=== PATIENT | female | born 1945 | race Hispanic/Latino ===

== ENCOUNTER 2022-08-09 15:32 | Inpatient (IN) | payer OTHER ==
[~2022-08-09] VITALS: Ht 152.4 cm; Wt 69.6 kg
[~2022-08-09 15:32] MED LIST: ALEN70TA80 PO; BENA40TA92 PO; GABA-529 PO; GLIM4TAB36 PO; METF-446 PO; PROP20TA7 PO; RIFA550T PO; SPIR100T5 PO; TROS20TA4 PO
[2022-08-09 16:23] LABS: POTASSIUM 4.3 mmol/L (3.5-5.1)
[2022-08-09 16:27] LABS: ALBUMIN 2.6 g/dL (3.5-5.0); TOTAL PROTEIN, SERUM 6.3 g/dL (6.0-8.3)
[2022-08-09 16:46] LABS: APPEARANCE,URINE CLOUDY (CLEAR); BILIRUBIN,URINE NEGATIVE (NEGATIVE); COLOR,URINE YELLOW (YELLOW); GLUCOSE, URINE (UA) NEGATIVE (NEGATIVE); KETONES,URINE NEGATIVE (NEGATIVE); LEUKOCYTE ESTERASE ,URINE 250 Leu/uL (NEGATIVE); NITRATE,URINE NEGATIVE (NEGATIVE); PH,URINE 5.5 (5.0-8.0); PROTEIN,URINE NEGATIVE (NEGATIVE); UROBILINOGEN,URINE 6 mg/dL (0.2-1.0)
[2022-08-09 16:49] LABS: BACTERIA,URINE FEW /HPF (None Seen); MUCUS,URINE RARE LPF (None Seen); OTHER CASTS, URINE 1 /LPF (None Seen); SQUAMOUS EPITHELIAL CELL,UR MOD /HPF (0-2); WBC,URINE 51-100 /HPF (0-1)
[2022-08-09 16:54] LABS: BASOPHILS % (AUTO) 0.8 % (0.0-5.0); EOSINOPHILS % (AUTO) 13.2 % (0.0-8.0); HEMATOCRIT 26.5 % (36-48); LYMPHOCYTES % (AUTO) 27.6 % (21.0-51.0); MEAN CORPUSCULAR HEMOGLOBIN 31.8 pg (27.0-33.0); MEAN CORPUSCULAR HGB CONC 32.8 g/dL (32.0-36.0); MEAN CORPUSCULAR VOLUME 96.7 fL (79-99); MONOCYTES % (AUTO) 8.6 % (3.0-13.0); NEUTROPHILS % (AUTO) 49.5 % (40.0-77.0); PLATELET COUNT (AUTO) 72 K/uL (130-400); RED BLOOD CELL COUNT(AUTO) 2.74 MIL/uL (4.00-5.50); RED CELL DISTRIBUTION WIDTH 15.8 % (11.0-15.5); WHITE BLOOD COUNT (AUTO) 3.7 K/uL (4.8-10.8)
[2022-08-09 17:06] LABS: INR 1.08 (0.85-1.15); PROTHROMBIN TIME 11.7 SEC (9.6-11.6)
[2022-08-09 17:08] LABS: PARTIAL THROMBOPLASTIN TIME 26.7 SEC (26.3-35.5)
[2022-08-09] MEDS ORDERED: PANTOPRAZOLE 40 MG/VIAL IVP ONE (17:30)
[2022-08-09] MEDS: PANTOPRAZOLE 40MG INJ 80 MG in 0.9%NACL 100ML 100 ML IVP SCH (17:46)
[2022-08-09] MEDS ORDERED: ACETAMINOPHEN 325 MG TAB PO PRN ×2 (18:00)
[2022-08-09] MEDS ORDERED: ONDANSETRON 4MG INJ IV PRN (18:00)
[2022-08-09 18:16] LABS: RETICULOCYTE % (AUTO) 4.47 % (0.42-2.23)
[2022-08-09] MEDS ORDERED: OCTREOTIDE ACETATE 1,250 MCG in 0.9% NACL 250ML 250 ML IV SCH (18:30)
[2022-08-09] MEDS ORDERED: PSYL174P2 PO (18:39)
[2022-08-09] MEDS ORDERED: PRAV40TA3 PO (18:39)
[2022-08-09] MEDS ORDERED: ONDA4AMP PO (18:39)
[2022-08-09] MEDS ORDERED: ALEN70TA80 PO (18:39)
[2022-08-09] MEDS ORDERED: FURO40TA5 PO (18:39)
[2022-08-09] MEDS ORDERED: URSO250T12 PO (18:39)
[2022-08-09] MEDS ORDERED: MELO-106 PO (18:39)
[2022-08-09] MEDS ORDERED: METF500S9 PO (18:39)
[2022-08-09] MEDS ORDERED: ASCO-477 PO (18:39)
[2022-08-09 18:40] LABS: % IRON SATURATION 81.8 % (22-44)
[2022-08-09 18:42] LABS: BILIRUBIN,DIRECT 0.7 mg/dL (0.0-0.3); THYROID STIMULATING HORMONE 2.95 uIU/mL (0.36-3.74)
[2022-08-09] MEDS: CEFTRIAXONE 1G VIAL IV SCH (19:10)
[2022-08-09 20:49] LABS: HEMATOCRIT 26.4 % (36-48)
[2022-08-09] MEDS: METOCLOPRAMIDE 10 MG/2 ML VIAL IVP SCH (21:00)
[2022-08-09] MEDS: LACTULOSE 20 GM/30 ML UDCUP PO SCH (21:00)
[2022-08-10 00:03] VITALS: BP 135/59
[2022-08-10] MEDS ORDERED: 0.9%NACL 100ML 100 ML ONE (02:37)
[2022-08-10] MEDS ORDERED: PANTOPRAZOLE 40 MG/VIAL ONE (02:37)
[2022-08-10 03:03] VITALS: BP 137/62
[2022-08-10] MEDS: PANTOPRAZOLE 40MG INJ 80 MG in 0.9%NACL 100ML 100 ML IVP SCH ×3 (03:25→23:30)
[2022-08-10 07:00] VITALS: BP_SYST 132; BP_SYST 138; BP_DIAS 56; BP_DIAS 87
[2022-08-10] MEDS ORDERED: PROPOFOL 10 MG/ML 20ML VIAL IV ONE (07:41)
[2022-08-10] MEDS ORDERED: MIDAZOLAM HCL 1 MG/ML 2ML VIAL ONE (07:41)
[2022-08-10] MEDS ORDERED: FENTANYL CITRATE PF 50 MCG/1 ML 2ML VIAL ONE (07:42)
[2022-08-10 08:27] LABS: HEMATOCRIT 27.4 % (36-48)
[2022-08-10] MEDS: LACTULOSE 20 GM/30 ML UDCUP PO SCH ×3 (08:51→20:22)
[2022-08-10] MEDS: METOCLOPRAMIDE 10 MG/2 ML VIAL IVP SCH ×3 (08:51→20:21)
[2022-08-10] MEDS ORDERED: PANTOPRAZOLE 40MG INJ 80 MG in 0.9%NACL 100ML 100 ML IV SCH (09:00)
[2022-08-10 11:00] VITALS: BP 131/58
[2022-08-10] MEDS ORDERED: COMPOUND IV REFRIGERATED 1 EACH IVSOLN MISC PRN (12:00)
[2022-08-10 13:06] LABS: HEMATOCRIT 28.9 % (36-48)
[2022-08-10 16:00] VITALS: BP 130/51
[2022-08-10] MEDS ORDERED: PEG 3350/NA SULF,BICARB,CL/KCL 4000 ML SOLN PO ONE (16:30)
[2022-08-10] MEDS: CEFTRIAXONE 1G VIAL IV SCH (18:30)
[2022-08-10 19:03] VITALS: BP 148/74
[2022-08-10 20:50] LABS: HEMATOCRIT 27.1 % (36-48)
[2022-08-11] VITALS (14 sets, daily range): BP systolic 128–143; BP diastolic 50–60
[2022-08-11] MEDS: PANTOPRAZOLE 40MG INJ 80 MG in 0.9%NACL 100ML 100 ML IVP SCH (00:59)
[2022-08-11] MEDS: LACTULOSE 20 GM/30 ML UDCUP PO SCH ×3 (08:14→19:46)
[2022-08-11] MEDS: METOCLOPRAMIDE 10 MG/2 ML VIAL IVP SCH ×3 (08:14→19:46)
[2022-08-11] MEDS ORDERED: FENTANYL CITRATE PF 50 MCG/1 ML 2ML VIAL ONE (12:09)
[2022-08-11] MEDS ORDERED: PROPOFOL 10 MG/ML 20ML VIAL IV ONE (12:09)
[2022-08-11] MEDS ORDERED: LIDOCAINE HCL 1% 20 ML VIAL ONE (12:10)
[2022-08-11] MEDS ORDERED: EPHEDRINE SULFATE 50 MG/ML AMPULE ONE (12:37)
[2022-08-11] MEDS: CEFTRIAXONE 1G VIAL IV SCH (17:13)
[2022-08-11] MEDS ORDERED: PANTOPRAZOLE 40 MG/VIAL ONE (19:22)
[2022-08-11] MEDS: PANTOPRAZOLE 40 MG/VIAL IVP SCH (19:45)
[2022-08-12] VITALS: BP 144/85
[2022-08-12 04:00] VITALS: BP 113/40
[2022-08-12 05:19] LABS: HEMATOCRIT 22.8 % (36-48); MEAN CORPUSCULAR HEMOGLOBIN 32.9 pg (27.0-33.0); MEAN CORPUSCULAR HGB CONC 34.2 g/dL (32.0-36.0); MEAN CORPUSCULAR VOLUME 96.2 fL (79-99); RED BLOOD CELL COUNT(AUTO) 2.37 MIL/uL (4.00-5.50); RED CELL DISTRIBUTION WIDTH 15.5 % (11.0-15.5); WHITE BLOOD COUNT (AUTO) 3.3 K/uL (4.8-10.8)
[2022-08-12 05:29] LABS: CREATININE 0.9 mg/dL (0.5-1.5); POTASSIUM 3.5 mmol/L (3.5-5.1)
[2022-08-12 08:00] VITALS: BP 133/44
[2022-08-12] MEDS: PANTOPRAZOLE 40 MG/VIAL IVP SCH ×2 (10:00→20:50)
[2022-08-12] MEDS: LACTULOSE 20 GM/30 ML UDCUP PO SCH ×3 (10:00→20:42)
[2022-08-12] MEDS: METOCLOPRAMIDE 10 MG/2 ML VIAL IVP SCH ×3 (10:00→20:50)
[2022-08-12 12:00] VITALS: BP 130/50
[2022-08-12] MEDS: FUROSEMIDE 20 MG TABLET PO SCH (12:15)
[2022-08-12] MEDS ORDERED: FUROSEMIDE 20 MG TABLET PO ONE (12:30)
[2022-08-12] MEDS ORDERED: EPOETIN ALFA-EPBX (NON-ESRD) 10,000 UNIT/ML VIAL SQ SCH (12:30)
[2022-08-12] MEDS ORDERED: SPIRONOLACTONE 25 MG TAB PO SCH (12:30)
[2022-08-12 12:39] LABS: % IRON SATURATION 10.4 % (22-44)
[2022-08-12 16:00] VITALS: BP 134/52
[2022-08-12] MEDS: SPIRONOLACTONE 25 MG TAB PO SCH (16:08)
[2022-08-12] MEDS: GABAPENTIN 100 MG CAPSULE PO SCH ×2 (16:08→20:50)
[2022-08-12] MEDS: CEFTRIAXONE 1G VIAL IV SCH (16:09)
[2022-08-12] MEDS: URSODIOL 250 MG PO SCH (20:42)
[2022-08-12 20:47] VITALS: BP 125/57
[2022-08-12] MEDS: PROPRANOLOL HCL 20 MG TAB PO SCH (20:50)
[2022-08-13 00:20] VITALS: BP 111/42
[2022-08-13 04:32] VITALS: BP 120/55
[2022-08-13 05:43] LABS: HEMATOCRIT 24.5 % (36-48); MEAN CORPUSCULAR HEMOGLOBIN 32.5 pg (27.0-33.0); MEAN CORPUSCULAR HGB CONC 33.9 g/dL (32.0-36.0); MEAN CORPUSCULAR VOLUME 96.1 fL (79-99); PLATELET COUNT (AUTO) 60 K/uL (130-400); RED BLOOD CELL COUNT(AUTO) 2.55 MIL/uL (4.00-5.50); RED CELL DISTRIBUTION WIDTH 15.7 % (11.0-15.5); WHITE BLOOD COUNT (AUTO) 3.8 K/uL (4.8-10.8)
[2022-08-13 06:24] LABS: ALBUMIN 2.3 g/dL (3.5-5.0); BILIRUBIN,DIRECT 0.4 mg/dL (0.0-0.3); MAGNESIUM 1.6 mg/dL (1.80-2.40); PHOSPHORUS 2.8 mg/dL (2.5-4.9); POTASSIUM 4.3 mmol/L (3.5-5.1); TOTAL PROTEIN, SERUM 5.6 g/dL (6.0-8.3)
[2022-08-13 07:11] VITALS: BP 134/58
[2022-08-13] MEDS ORDERED: MAGNESIUM 2GM PREMIX 50ML 50 ML IV SCH (08:00)
[2022-08-13] MEDS: URSODIOL 250 MG PO SCH (09:00)
[2022-08-13] MEDS: METOCLOPRAMIDE 10 MG/2 ML VIAL IVP SCH ×2 (09:00→14:41)
[2022-08-13] MEDS: PANTOPRAZOLE 40 MG/VIAL IVP SCH (10:42)
[2022-08-13] MEDS: FUROSEMIDE 20 MG TABLET PO SCH (10:43)
[2022-08-13] MEDS: LACTULOSE 20 GM/30 ML UDCUP PO SCH ×2 (10:43→14:41)
[2022-08-13] MEDS: PROPRANOLOL HCL 20 MG TAB PO SCH (10:43)
[2022-08-13] MEDS: SPIRONOLACTONE 25 MG TAB PO SCH (10:44)
[2022-08-13] MEDS: GABAPENTIN 100 MG CAPSULE PO SCH ×2 (10:52→14:40)
[2022-08-13 11:18] VITALS: BP 131/46
[2022-08-13 15:05] VITALS: BP 124/42
[2022-08-13] MEDS: CEFTRIAXONE 1G VIAL IV SCH (18:29)
[2022-08-13] MEDS ORDERED: PANT40TA PO (19:04)
[2022-08-13] MEDS ORDERED: SPIR25TA6 PO (19:04)
[2022-08-13] MEDS ORDERED: LACT PO (19:04)
[2022-08-13] MEDS ORDERED: FURO20TA6 PO (19:04)
== END 2022-08-13 19:58 | disposition home or self-care (01) | DRG 432 ==
LOC: EDH 15:32 → EDHIP 17:57 → 2DH 08-10 00:40 → 3AH 08-11 23:23
PROVIDERS: ADMIT Internal Medicine; ATTEND Internal Medicine
PROC: 06L38CZ Occlusion of Esophageal Vein with Extraluminal Device, Via Natural or Artificial Opening Endoscopic (ICD-10-PCS; principal; 2022-08-11)
PROC: 0DJD8ZZ Inspection of Lower Intestinal Tract, Via Natural or Artificial Opening Endoscopic (ICD-10-PCS; 2022-08-11)
DX: K74.60 Unspecified cirrhosis of liver (principal); I85.11 Secondary esophageal varices with bleeding; D61.818 Other pancytopenia; D62 Acute posthemorrhagic anemia; N39.0 Urinary tract infection, site not specified; E44.0 Moderate protein-calorie malnutrition; M48.56XA Collapsed vertebra, not elsewhere classified, lumbar region, initial encounter for fracture; K76.6 Portal hypertension; Z20.822 Contact with and (suspected) exposure to COVID-19; K57.90 Diverticulosis of intestine, part unspecified, without perforation or abscess without bleeding; K72.90 Hepatic failure, unspecified without coma; E11.9 Type 2 diabetes mellitus without complications; E78.00 Pure hypercholesterolemia, unspecified; I10 Essential (primary) hypertension; K21.9 Gastro-esophageal reflux disease without esophagitis; M16.0 Bilateral primary osteoarthritis of hip; Z96.652 Presence of left artificial knee joint; Z79.83 Long term (current) use of bisphosphonates; Z79.84 Long term (current) use of oral hypoglycemic drugs; Z79.899 Other long term (current) drug therapy; Z88.6 Allergy status to analgesic agent; Z90.710 Acquired absence of both cervix and uterus; Z68.30 Body mass index [BMI] 30.0-30.9, adult; K31.89 Other diseases of stomach and duodenum
CPT/HCPCS: 36415; 43244; 45378; 78278; 80048; 80053; 80076; 81001; 82140; 82248; 82270; 82607; 82728; 82746; 82948; 83036; 83540; 83550; 83735; 84100; 84443; 85014; 85018; 85025; 85027; 85045; 85610; 85730; 86850; 86900; 86901; 87077; 87088; 87186; 87635; 93005; A9512; C9113; G0378; J0696; J2250; J2354; J2405; J2704; J2765; J3010; J3475; J3490; J7050

== ENCOUNTER 2022-08-22 15:22 | Emergency (ER) | payer OTHER ==
[~2022-08-22] VITALS: Ht 157.5 cm; Wt 68.9 kg
[~2022-08-22 15:22] MED LIST changes: +ASCO-477 PO; -BENA40TA92 PO; +FURO20TA6 PO; +LACT PO; -METF-446 PO; +METF500S9 PO; +ONDA4AMP PO; +PANT40TA PO; +PRAV40TA3 PO; -SPIR100T5 PO; +SPIR25TA6 PO; +URSO250T12 PO
[2022-08-22 15:59] LABS: BASOPHILS % (AUTO) 0.6 % (0.0-5.0); EOSINOPHILS % (AUTO) 4.2 % (0.0-8.0); HEMATOCRIT 28.8 % (36-48); LYMPHOCYTES % (AUTO) 20.5 % (21.0-51.0); MEAN CORPUSCULAR HEMOGLOBIN 31.4 pg (27.0-33.0); MEAN CORPUSCULAR HGB CONC 32.6 g/dL (32.0-36.0); MEAN CORPUSCULAR VOLUME 96.3 fL (79-99); MONOCYTES % (AUTO) 8.8 % (3.0-13.0); NEUTROPHILS % (AUTO) 65.7 % (40.0-77.0); PLATELET COUNT (AUTO) 54 K/uL (130-400); RED BLOOD CELL COUNT(AUTO) 2.99 MIL/uL (4.00-5.50); RED CELL DISTRIBUTION WIDTH 15.9 % (11.0-15.5)
[2022-08-22 16:11] LABS: CREATININE 1.6 mg/dL (0.5-1.5); POTASSIUM 4.7 mmol/L (3.5-5.1)
[2022-08-22 16:28] LABS: ALBUMIN 2.9 g/dL (3.5-5.0); TOTAL PROTEIN, SERUM 6.6 g/dL (6.0-8.3)
[2022-08-22 16:32] LABS: APPEARANCE,URINE CLOUDY (CLEAR); BILIRUBIN,URINE NEGATIVE (NEGATIVE); COLOR,URINE YELLOW (YELLOW); GLUCOSE, URINE (UA) NEGATIVE (NEGATIVE); KETONES,URINE NEGATIVE (NEGATIVE); LEUKOCYTE ESTERASE ,URINE 250 Leu/uL (NEGATIVE); NITRATE,URINE NEGATIVE (NEGATIVE); OCCULT BLOOD,URINE NEGATIVE (NEGATIVE); PROTEIN,URINE NEGATIVE (NEGATIVE); UROBILINOGEN,URINE 0.2 mg/dL (0.2-1.0)
[2022-08-22 16:44] LABS: BACTERIA,URINE FEW /HPF (None Seen); MUCUS,URINE RARE LPF (None Seen); OTHER CASTS, URINE 6 /LPF (None Seen); RBC,URINE 0-1 /HPF (0-1); SQUAMOUS EPITHELIAL CELL,UR MANY /HPF (0-2); YEAST,URINE BUDDING MOD /HPF (None Seen)
[2022-08-22 18:08] VITALS: BP 107/52
== END 2022-08-22 18:31 | disposition home or self-care (01) ==
LOC: EDH 15:22
DX: K74.60 Unspecified cirrhosis of liver (principal); D64.9 Anemia, unspecified; E11.9 Type 2 diabetes mellitus without complications; E78.00 Pure hypercholesterolemia, unspecified; I10 Essential (primary) hypertension; Z98.890 Other specified postprocedural states; Z79.899 Other long term (current) drug therapy; Z79.84 Long term (current) use of oral hypoglycemic drugs; Z88.5 Allergy status to narcotic agent; Z88.0 Allergy status to penicillin; Z88.8 Allergy status to other drugs, medicaments and biological substances; Z88.1 Allergy status to other antibiotic agents
CPT/HCPCS: 36415; 80053; 81001; 82140; 84484; 85025; 87077; 87088; 87186; 93005